=== PATIENT | female | born 1985 | race African-American/Black ===

== ENCOUNTER 2017-05-22 11:40 | Emergency (ER) | payer MEDICAID, SELFPAY | END 2017-05-22 11:58 | disposition home or self-care (01) | LOC: SCSER 11:40 | DX: J06.9 Acute upper respiratory infection, unspecified (principal); I10 Essential (primary) hypertension; E11.9 Type 2 diabetes mellitus without complications; Z79.899 Other long term (current) drug therapy | CPT/HCPCS: 99283 ==